=== PATIENT | female | born 1965 | race Caucasian/White ===

== ENCOUNTER 2018-03-23 04:58 | Emergency (ER) | payer MEDICAID ==
--- NOTE | 2018-03-23 07:59 | RAD ---
2 VIEWS CHEST: Date: 03/23/18 PROVIDED CLINICAL HISTORY: Cough. FINDINGS: No comparisons. Cardiac silhouette is upper limits of normal in size. Lungs appear clear. No pleural fluid or pneumot horax apparent. IMPRESSION: No evidence for an acute cardiopulmonary process. POS: [facility]
== END 2018-03-23 06:30 | disposition home or self-care (01) ==
LOC: ERS 04:58
DX: J20.9 Acute bronchitis, unspecified (principal); J44.9 Chronic obstructive pulmonary disease, unspecified; I10 Essential (primary) hypertension; E78.5 Hyperlipidemia, unspecified; F41.9 Anxiety disorder, unspecified; F17.210 Nicotine dependence, cigarettes, uncomplicated; Z79.899 Other long term (current) drug therapy
CPT/HCPCS: 71046

== ENCOUNTER 2018-05-17 03:10 | Emergency (ER) | payer MEDICAID ==
[2018-05-17] MEDS ORDERED: rOPINIRole HCl 2 MG TAB PO SCH (04:15)
== END 2018-05-17 04:11 | disposition home or self-care (01) ==
LOC: ERS 03:10
DX: G25.81 Restless legs syndrome (principal); I10 Essential (primary) hypertension; J44.9 Chronic obstructive pulmonary disease, unspecified; E78.5 Hyperlipidemia, unspecified; F41.9 Anxiety disorder, unspecified; F17.210 Nicotine dependence, cigarettes, uncomplicated; Z79.899 Other long term (current) drug therapy
CPT/HCPCS: 99281

== ENCOUNTER 2018-07-14 16:06 | Outpatient (CLI) | payer MEDICAID ==
--- NOTE | 2018-07-14 16:40 | RAD ---
CHEST TWO VIEWS: History: COPD. Bronchitis. Comparison: 03-23-18 FINDINGS: Normal cardiac silhouette. Lungs are pleural spaces are clear. No pneumothorax or osseous abnormaliti es. IMPRESSION: No acute cardiopulmonary process. POS: [facility]
== END 2018-07-14 16:07 | disposition home or self-care (01) ==
LOC: BICRAD 16:06
PROVIDERS: ATTEND Family Medicine
DX: J44.0 Chronic obstructive pulmonary disease with (acute) lower respiratory infection (principal); J20.9 Acute bronchitis, unspecified
CPT/HCPCS: 71046

== ENCOUNTER 2018-08-09 14:57 | Emergency (ER) | payer OTHER ==
[2018-08-09] MEDS ORDERED: Acetaminophen 325 MG TAB ONE (15:52)
[2018-08-09] MEDS ORDERED: Metoclopramide HCl 10 MG/2 ML VIAL ONE (15:52)
[2018-08-09] MEDS ORDERED: diphenhydrAMINE 50 MG/ML VIAL ONE (15:52)
[2018-08-09] MEDS ORDERED: Cyclobenzaprine 10 MG TAB ONE (16:04)
--- NOTE | 2018-08-09 16:09 | CT ---
HEAD CT NONCONTRAST: 08/09/18 INDICATION: Emergency exam, occipital headache. FINDINGS: The ventricular system is normal in size. There is a sarahi cisterna magna. No intracranial hemorrhage, mass effect or midline shift. IMPRESSION: No acute intracranial abnormality. Should symptoms of headache persist, consider MRI of brain for further evaluation. POS: [facility]
== END 2018-08-09 16:22 | disposition home or self-care (01) ==
LOC: ERS 14:57
DX: G44.209 Tension-type headache, unspecified, not intractable (principal); R73.03 Prediabetes; E78.5 Hyperlipidemia, unspecified; I10 Essential (primary) hypertension; J44.9 Chronic obstructive pulmonary disease, unspecified; F41.9 Anxiety disorder, unspecified; F17.210 Nicotine dependence, cigarettes, uncomplicated; Z79.51 Long term (current) use of inhaled steroids; Z79.899 Other long term (current) drug therapy
CPT/HCPCS: 70450; J1200; J2765

== ENCOUNTER 2018-08-19 13:15 | Outpatient (CLI) | payer OTHER ==
--- NOTE | 2018-08-19 14:26 | MMO ---
BILATERAL SCREENING MAMMOGRAM: Date: 08/19/18 HISTORY: 53-year-old female. Routine screening mammography. COMPARISON: None. Baseline mammogram. TECHNIQUE: CC and MLO views of both breasts are submitted for interpretation. This patient's mammogram was reviewed with the assistance of computer-aided detection. FINDINGS: The breasts are composed of scattered fibroglandular tissue. Focal asymmetry in the upper outer left breast. Benign-appearing calcifications both breasts. IMPRESSION: BIRADS 0: Incomplete: Need Additional Imaging Evaluation and/or Prior Mammograms for Comparison RECOMMENDATION: Spot view of the right breast in the CC and MLO projection, along with a mediolateral view. Spot view s of the left breast in the CC and MLO projection, along with a mediolateral view. Ultrasound should be performed if clinically warranted. The facility will notify patient of need for additional imaging services. POS: [facility]
== END 2018-08-19 13:16 | disposition home or self-care (01) ==
LOC: SCSMAMMO 13:15
PROVIDERS: ATTEND Family Medicine
DX: Z12.31 Encounter for screening mammogram for malignant neoplasm of breast (principal)
CPT/HCPCS: 77067

== ENCOUNTER 2018-09-08 09:32 | Outpatient (CLI) | payer OTHER ==
--- NOTE | 2018-09-08 11:31 | ULT ---
LIMITED LEFT BREAST ULTRASOUND: DATE: 09/08/18 PROVIDED CLINICAL HISTORY: Abnormal mammogram. FINDINGS: Limited sonographic interrogation was performed of the left breast in the region of mammographic conc selvin. There is no evidence for a focal mass. IMPRESSION: BIRADS Category 1 - Negative. Return to annual screening mammography recommenced. POS: [facility]
--- NOTE | 2018-09-08 11:39 | ULT ---
LIMITED RIGHT BREAST ULTRASOUND: DATE: 08/29/2018. PROVIDED CLINICAL HISTORY: Abnormal mammogram. FINDINGS: Limited sonographic interrogation was performed with the right breast in the region of mammographic c oncern. The sonographic appearance of the right breast in this region demonstrates no evidence for f ocal mass. IMPRESSION: BIRADS category 1 - negative. Return to annual screening mammography recommended. POS: [facility]
--- NOTE | 2018-09-08 18:22 | MMO ---
MAMMO Bilat Diag [facility]. CLINICAL HISTORY: Patient is 53 years old and is seen for diagnostic exam. The patient has no family history of breast cancer. The patient has no personal history of cancer. VIEWS: The views performed were: bilateral craniocaudal with tomosynthesis; bilateral mediolateral oblique with tomosynthesis; and bilateral mediolateral with tomosynthesis. FILMS COMPARED: The present examination has been compared to prior imaging studies performed at [facility] on 08/19/2018 and 09/08/2018. MAMMOGRAM FINDINGS: The breasts are heterogeneously dense, which could obscure a lesion on mammography. The asymmetries seen at screening mammography do not demonstrate mass like features mammographically and are similar bilaterally. Sonography in these regions is normal. IMPRESSION: FINDINGS IN BOTH BREASTS ARE BENIGN. A ROUTINE FOLLOW-UP MAMMOGRAM IN 1 YEAR IS RECOMMENDED. THE RESULTS OF THIS EXAM WERE SENT TO THE PATIENT. ACR BI-RADS Category 2 - Benign finding MAMMOGRAPHY NOTE: 1. A negative mammogram report should not delay a biopsy if a dominant of clinically suspicious mass is present. 2. Approximately 10% to 15% of breast cancers are not detected by mammography. 3. Adenosis and dense breasts may obscure an underlying neoplasm.
== END 2018-09-08 09:33 | disposition home or self-care (01) ==
LOC: BICMAMMO 09:32
PROVIDERS: ATTEND Family Medicine
DX: R92.8 Other abnormal and inconclusive findings on diagnostic imaging of breast (principal)
CPT/HCPCS: 77066; G0279

== ENCOUNTER 2018-11-23 16:12 | Emergency (ER) | payer OTHER ==
[2018-11-23] MEDS ORDERED: Ketorolac Tromethamine 30 MG/ML VIAL ONE ×2 (17:04)
== END 2018-11-23 17:33 | disposition home or self-care (01) ==
LOC: ERS 16:12
DX: M79.661 Pain in right lower leg (principal); M79.662 Pain in left lower leg; E78.5 Hyperlipidemia, unspecified; I10 Essential (primary) hypertension; F41.9 Anxiety disorder, unspecified; F17.210 Nicotine dependence, cigarettes, uncomplicated; Z79.899 Other long term (current) drug therapy; Z79.82 Long term (current) use of aspirin; Z79.84 Long term (current) use of oral hypoglycemic drugs; J44.9 Chronic obstructive pulmonary disease, unspecified; Z79.51 Long term (current) use of inhaled steroids
CPT/HCPCS: 96372; J1885

== ENCOUNTER 2018-12-04 08:07 | Observation (INO) | payer OTHER ==
--- NOTE | 2018-12-04 08:34 | RAD ---
EXAM: Chest PA and lateral: HISTORY: Chest pain COMPARISON: 07/14/2018 FINDINGS: Heart size:Within normal limits. Lungs:Clear of acute process. No confluent pneumonia, overt edema, pleural effusion, or other acute process. IMPRESSION: No significant acute intrathoracic disease.
[2018-12-04 08:38] LABS: #Basophils 0.1 thou/uL (0.0-0.2); #Eosinphils 0.1 thou/uL (0.0-0.7); #Lymphocytes 2.9 thou/uL (1.20-3.40); #Monocytes 0.5 thou/uL (0.11-0.59); %Basophils 0.8 % (0.0-1.0); %Eosinophils 1.1 % (0.0-10.0); %Lymphocytes 34.4 % (21.0-51.0); %Monocytes 5.7 % (0.0-10.0); Hemoglobin 14.6 g/dL (12.0-16.0); Mean Corpuscular Hemoglobin 30.8 pg (27.0-31.0); Mean Corpuscular Volume 90.7 fL (78.0-98.0); Mean Platelet Volume 6.7 fL (7.4-10.4); Platelet Count 298 thou/uL (130-400); RBC Distribution Width 13.6 % (11.5-14.5); Red Blood Cell (RBC) Count 4.75 mill/uL (4.20-5.40); White Blood Cell (WBC) Count 8.5 thou/uL (4.8-10.8)
[2018-12-04 09:02] LABS: ALT (SGPT) 20 U/L (8-55); AST (SGOT) 15 U/L (5-34); Albumin 4.6 g/dL (3.5-5.0); Alkaline Phosphatase 111 U/L (40-150); Anion Gap 20 mmol/L (10-20); BUN (Urea Nitrogen) 25 mg/dL (9.8-20.1); Bilirubin, Total 0.4 mg/dL (0.2-1.2); CK (CPK) 182 U/L (29-168); Calc. Creatinine Clearance 0 mL/min (70-130); Calcium 9.8 mg/dL (7.8-10.44); Carbon Dioxide 22 mmol/L (22-29); Chloride 100 mmol/L (98-107); Estimated GFR-MDRD 71; Globulin 2.8 g/dL (2.4-3.5); Glucose 111 mg/dL (70-105); Potassium 3.4 mmol/L (3.5-5.1); Protein, Total 7.4 g/dL (6.0-8.3); Sodium 139 mmol/L (136-145)
[2018-12-04] MEDS ORDERED: Aspirin Chewable 81 MG TAB ONE (09:44)
[2018-12-04] MEDS ORDERED: Nitroglycerin 2% Ointment 1 INCH/1 GM Packet ONE (09:44)
[2018-12-04] MEDS ORDERED: Acetaminophen 325 MG TAB PO PRN (11:38)
[2018-12-04 11:50] VITALS: BMI 37.5
[2018-12-04 12:10] LABS: Troponin I Less than 0.010 ng/mL (< 0.028)
[2018-12-04] MEDS ORDERED: Nitroglycerin 0.4 MG TAB (25 Tab Bottle) PO PRN (12:36)
[2018-12-04 14:39] LABS: Troponin I Less than 0.010 ng/mL (< 0.028)
[2018-12-04] MEDS ORDERED: rOPINIRole HCl 2 MG TAB PO SCH (15:00)
[2018-12-04 17:02] VITALS: BP 130/67; TEMP 98
--- NOTE | 2018-12-04 17:39 | NM ---
NUCLEAR MEDICINE CARDIAC MYOCARDIAL PERFUSION SPECT EJECTION FRACTION STUDY WALL MOTION CINE: DATE: 12/04/2018 History: 53-year-old female smoker with diabetes mellitus, dyslipidemia, and hypertension, presents with chest pain. TECHNIQUE: Number of days:1 Rest study: Technetium 99m-sestamibi (Cardiolite) dose:9.0 mCi Pharmacologic stress: Lexiscan dose:0.4 mg Stress study: Technetium 99m-sestamibi (Cardiolite) dose:28.0 mCi FINDINGS: Cardiac (myocardial perfusion) SPECT There are no reversible myocardial perfusion defects. Ejection fraction study Left ventricular EF = 62% Wall motion cine Normal IMPRESSION: No evidence of reversible ischemia.
[2018-12-04] MEDS ORDERED: Fluticasone Propionate HFA 44 MCG AER INH PRN (18:30)
[2018-12-04] MEDS ORDERED: Regadenoson 0.4 MG/5 ML SYRINGE ONE (20:08)
[2018-12-04] MEDS ORDERED: Fluticasone Propionate HFA 110 MCG AER INH SCH (21:00)
[2018-12-04] MEDS ORDERED: Aspirin 81 mg Enteric Coated Tablet PO SCH (21:00)
[2018-12-04] MEDS ORDERED: Gabapentin 300 MG CAP PO SCH (21:00)
[2018-12-04] MEDS ORDERED: Loratadine 10 MG TAB PO SCH (21:00)
[2018-12-04] MEDS ORDERED: Atorvastatin Calcium 20 MG TAB PO SCH (21:00)
--- NOTE | 2018-12-05 00:35 | SS ---
DATE OF ADMISSION: 12/04/2018 DATE OF DISCHARGE: 12/04/2018 CHIEF COMPLAINT: Chest pain. FINAL DIAGNOSES: 1. Chest pain, resolved, acute coronary syndrome ruled out, MPI negative for reversible ischemia. 2. Hypertension. 3. Type 2 diabetes mellitus. 4. Tobacco abuse with a 40 pack-year history along with current one pack per day habit. 5. Hyperlipidemia. 6. Family history of coronary artery disease. BRIEF HOSPITAL COURSE: The patient is a pleasant 53-year-old female with past medical history significant for multiple coronary artery disease risk factors including hypertension, hyperlipidemia, diabetes, smoking, and family history of coronary artery disease, who presented to the hospital with complaints of chest pain. She states she has had one episode of nonexertional chest pain last week and then this morning, she had some chest pain that she felt as tightening that occurred around 3:30 in the morning. She had some mild shortness of breath and felt clammy. She denies any vomiting, however, felt mildly nauseous. She did go out and smoke two cigarettes before having her boyfriend drive her to the ER for further workup and treatment. On arrival, her EKG was negative for acute ST or T-wave changes. She was admitted for ACS rule out. Her enzymes were indeed negative. Given her multiple risk factors for coronary artery disease as outlined above, the patient was administered a nuclear stress test. Her stress test was normal, showing no evidence of reversible ischemia and normal EF. The patient feels well by this afternoon. She denies any further chest pain. ACS as mentioned above has been ruled out in this patient. She has no complaints at the time of my discharge. PAST MEDICAL/SURGICAL HISTORY: Includes hypertension, type 2 diabetes mellitus, hyperlipidemia, COPD, neuropathy, restless legs syndrome, tympanic membrane repair as both a child and adult, Arnold's neuroma removal from foot, cholecystectomy, tubal ligation. SOCIAL HISTORY: She denies any alcohol or illicit drug use. She is disabled secondary to back pain and does not work. She lives with her boyfriend. She has smoked two packs per day of cigarettes since she was 21, but recently cut down to one pack per day. ALLERGIES: HYDROCODONE, PENICILLIN, AND SULFA. MEDICATIONS: Current medications which will not change on discharge include: 1. Albuterol inhaler as needed. 2. Potassium chloride 20 mEq one daily. 3. Aspirin 81 mg daily. 4. Lipitor 20 mg p.o. at bedtime. 5. Cetirizine 10 mg p.o. at bedtime. 6. Fluticasone 50 mcg inhaled b.i.d. p.r.n. 7. Gabapentin 300 mg p.o. b.i.d. 8. Hydrochlorothiazide 25 mg daily. 9. Metformin 850 mg p.o. b.i.d. 10. Montelukast 10 mg p.o. daily. 11. Ropinirole 2 mg p.o. t.i.d. 12. Terazosin 5 mg p.o. daily. PHYSICAL EXAMINATION: VITAL SIGNS: Blood pressure 134/60, O2 saturation is 93% on room air, respirations 20, pulse 90, temperature 98.2. GENERAL: This is an obese female, in no acute distress. HEENT: Head is atraumatic and normocephalic. Mucous membranes are moist. NECK: No lymphadenopathy. No carotid bruits. Trachea is midline. CV: S1 and S2. Regular rate and rhythm. No appreciable murmurs, rubs, or gallops. LUNGS: Regular respiratory rate and pattern with occasional expiratory rhonchi. ABDOMEN: Positive bowel sounds. Soft, nontender. No masses. EXTREMITIES: No edema. +2 DP pulses bilaterally. SKIN: Warm and dry. NEUROLOGIC: Cranial nerves 2 through 12 are intact. The patient is nonfocal. DISCHARGE DISPOSITION: Home. DISCHARGE CONDITION: Stable. FOLLOWUP AND DISCHARGE INSTRUCTIONS: The patient is to continue aggressive risk factor modification, including aggressive blood glucose control, as well as tobacco cessation, which I have counseled the patient heavily on. She has a followup scheduled with her primary care physician, Dr. Schreiber next week on 12/08, for further blood work to include fasting lipid panel. She will be discharged home in good condition today. Job ID: [id number]
[2018-12-05] MEDS ORDERED: Terazosin HCl 5 MG CAP PO SCH (09:00)
[2018-12-05] MEDS ORDERED: Hydrochlorothiazide 25 MG TAB PO SCH (09:00)
== END 2018-12-04 18:11 | disposition home or self-care (01) ==
LOC: ERS 08:07 → 2SW 09:40
PROVIDERS: ADMIT Internal Medicine; ATTEND Internal Medicine
DX: R07.89 Other chest pain (principal); I10 Essential (primary) hypertension; E11.9 Type 2 diabetes mellitus without complications; E78.5 Hyperlipidemia, unspecified; F17.210 Nicotine dependence, cigarettes, uncomplicated; I25.10 Atherosclerotic heart disease of native coronary artery without angina pectoris; J44.9 Chronic obstructive pulmonary disease, unspecified; E66.9 Obesity, unspecified; Z88.0 Allergy status to penicillin; Z88.2 Allergy status to sulfonamides; Z88.6 Allergy status to analgesic agent; Z79.82 Long term (current) use of aspirin; Z79.51 Long term (current) use of inhaled steroids; Z79.84 Long term (current) use of oral hypoglycemic drugs; Z79.899 Other long term (current) drug therapy; Z68.37 Body mass index [BMI] 37.0-37.9, adult
CPT/HCPCS: 36415; 71046; 78452; 80053; 82550; 83690; 83880; 84484; 85025; 90471; 90732; 93005; 93017; 96360; A9500; G0009; G0378; J2785

== ENCOUNTER 2019-02-21 00:36 | Observation (INO) | payer OTHER ==
[2019-02-21 00:58] LABS: #Basophils 0.1 thou/uL (0.0-0.2); #Eosinphils 0.1 thou/uL (0.0-0.7); #Lymphocytes 3.9 thou/uL (1.20-3.40); #Monocytes 0.6 thou/uL (0.11-0.59); #Neutrophils 5.1 thou/uL (1.40-6.50); %Basophils 0.7 % (0.0-1.0); %Eosinophils 1.5 % (0.0-10.0); %Lymphocytes 39.4 % (21.0-51.0); %Monocytes 6.2 % (0.0-10.0); %Neutrophils 52.2 % (42.0-75.0); Hemoglobin 14.6 g/dL (12.0-16.0); Mean Corpuscular HGB CONC 35.1 g/dL (32.0-36.0); Mean Corpuscular Hemoglobin 31.7 pg (27.0-31.0); Mean Corpuscular Volume 90.4 fL (78.0-98.0); Mean Platelet Volume 6.3 fL (7.4-10.4); Platelet Count 323 thou/uL (130-400); RBC Distribution Width 14.3 % (11.5-14.5); White Blood Cell (WBC) Count 9.8 thou/uL (4.8-10.8)
[2019-02-21] MEDS ORDERED: Nitroglycerin 0.4 MG TAB 1 EACH ONE (01:13)
[2019-02-21] MEDS ORDERED: Aspirin Chewable 81 MG TAB ONE (01:13)
[2019-02-21 01:20] LABS: ALT (SGPT) 33 U/L (8-55); AST (SGOT) 20 U/L (5-34); Albumin 4.5 g/dL (3.5-5.0); Alkaline Phosphatase 118 U/L (40-150); Anion Gap 15 mmol/L (10-20); BUN (Urea Nitrogen) 13 mg/dL (9.8-20.1); Bilirubin, Total 0.5 mg/dL (0.2-1.2); Calc. Creatinine Clearance 0 mL/min (70-130); Calcium 10.1 mg/dL (7.8-10.44); Carbon Dioxide 28 mmol/L (22-29); Chloride 97 mmol/L (98-107); Estimated GFR-MDRD 69; Globulin 2.8 g/dL (2.4-3.5); Glucose 128 mg/dL (70-105); Potassium 3.6 mmol/L (3.5-5.1); Protein, Total 7.3 g/dL (6.0-8.3); Sodium 136 mmol/L (136-145)
[2019-02-21] MEDS ORDERED: Mag-Al 1200 mg/1200 mg/30 ML UDCUP ONE (01:52)
[2019-02-21] MEDS ORDERED: Lidocaine Viscous Sol 2% 15 ml UD Cup ONE (01:52)
[2019-02-21 04:16] LABS: Troponin I Less than 0.010 ng/mL (< 0.028)
[2019-02-21] MEDS ORDERED: Acetaminophen 325 MG TAB PO PRN ×2 (04:50→08:21)
[2019-02-21 05:07] VITALS: BMI 33.4
[2019-02-21 07:13] LABS: Cardiac Risk 4.3 (Less than 4.5)
[2019-02-21 07:16] LABS: Troponin I Less than 0.010 ng/mL (< 0.028)
--- NOTE | 2019-02-21 07:45 | RAD ---
EXAM: CHEST ONE VIEW HISTORY: Intermittent chest pain COMPARISON: 12/04/2018 FINDINGS: The cardiac silhouette and pulmonary vasculature is within normal limits. Linear densities are seen a t the lung base probably related to vascular structures and possibly mild atelectasis. Lungs are otherwise clear. The osseous structures are intact. IMPRESSION: No acute cardiopulmonary process.
[2019-02-21] MEDS ORDERED: Ondansetron PF 4 MG/2 ML Vial IVP PRN (08:21)
[2019-02-21] MEDS ORDERED: Ondansetron ODT 4 MG TAB PO PRN (08:21)
[2019-02-21] MEDS ORDERED: Acetaminophen 650 MG Suppository PR PRN (08:21)
[2019-02-21] MEDS ORDERED: Cyclobenzaprine 10 MG TAB PO PRN (08:42)
[2019-02-21] MEDS ORDERED: HumaLOG 300 UNITS/3 ML VIAL SC PRN ×2 (08:44)
[2019-02-21] MEDS ORDERED: Dextrose 5% in Water 1,000 ML IV PRN (08:44)
[2019-02-21] MEDS ORDERED: Dextrose 50% Abboject 50 ML SYRINGE SLOW IVP PRN (08:44)
[2019-02-21] MEDS ORDERED: Famotidine/PF 20 mg/2ml Vial SLOW IVP SCH (09:00)
[2019-02-21] MEDS ORDERED: Gabapentin 300 MG CAP PO SCH (09:00)
[2019-02-21] MEDS ORDERED: Hydrochlorothiazide 25 MG TAB PO SCH (09:00)
[2019-02-21] MEDS ORDERED: Aspirin 325 mg Enteric Coated Tablet PO SCH (09:00)
[2019-02-21] MEDS ORDERED: Terazosin HCl 5 MG CAP PO SCH (09:00)
[2019-02-21] MEDS ORDERED: Montelukast Sodium 10 mg Tablet PO SCH (09:00)
[2019-02-21] MEDS: Loratadine 10 MG TAB PO SCH ×2 (10:41→10:46)
[2019-02-21] MEDS: rOPINIRole HCl 2 MG TAB PO SCH ×2 (10:41→15:10)
[2019-02-21 11:01] VITALS: BP 131/73; TEMP 97.4
[2019-02-21] MEDS ORDERED: Mometasone 100 MCG HFA INHALER INH SCH (18:30)
[2019-02-21] MEDS ORDERED: Mometasone Furoate 120 PUFF 220 MCG INH SCH (18:30)
[2019-02-21] MEDS ORDERED: Aspirin 81 mg Enteric Coated Tablet PO SCH (21:00)
[2019-02-21] MEDS ORDERED: Atorvastatin Calcium 20 MG TAB PO SCH (21:00)
--- NOTE | 2019-02-22 07:40 | ULT ---
EXAM: US Gallbladder RUQ CLINICAL HISTORY: Epigastric pain. COMPARISON: None. FINDINGS: Pancreas: Suboptimal evaluation of the pancreas due to bowel gas Liver:Increased echogenicity may be due to hepatic steatosis or hepatocellular disease. Subsequent ev aluation for hepatic masses and intrahepatic biliary dilatation is limited. Right hepatic lobe measures 19 cm Portal vein: Patent with appropriate directional flow Gallbladder: Surgically absent Greene's sign:Not applicable Bile ducts: Poorly defined due to bowel gas Right kidney: No hydronephrosis. Right kidney measures 3.9 x 10.7 x 5.8 cm in length. IMPRESSION: 1. Increased echogenicity of liver may be due to hepatic steatosis or hepatocellular disease. There i s concern for hepatic masses, consider liver mass protocol CT or abdomen MRI 2. Suboptimal evaluation the common bile duct. Surgically absent gallbladder
== END 2019-02-21 17:53 | disposition home or self-care (01) ==
LOC: ERS 00:36 → 2NO 04:17
PROVIDERS: ADMIT Internal Medicine; ATTEND Internal Medicine
DX: R07.9 Chest pain, unspecified (principal); E78.00 Pure hypercholesterolemia, unspecified; E78.5 Hyperlipidemia, unspecified; F41.9 Anxiety disorder, unspecified; F17.210 Nicotine dependence, cigarettes, uncomplicated; J44.9 Chronic obstructive pulmonary disease, unspecified; E11.40 Type 2 diabetes mellitus with diabetic neuropathy, unspecified; Z79.82 Long term (current) use of aspirin; Z79.84 Long term (current) use of oral hypoglycemic drugs; Z79.899 Other long term (current) drug therapy; Z88.0 Allergy status to penicillin; Z88.2 Allergy status to sulfonamides; Z88.5 Allergy status to narcotic agent
CPT/HCPCS: 36415; 36416; 71045; 76705; 80053; 80061; 83690; 83880; 84484; 85025; 93005; 94760; 96374; 99406; G0378; S0028

== ENCOUNTER 2019-03-29 00:45 | Observation (INO) | payer OTHER ==
[2019-03-29 01:20] LABS: #Lymphocytes 1.8 thou/uL (1.20-3.40); #Monocytes 0.8 thou/uL (0.11-0.59); #Neutrophils 5.7 thou/uL (1.40-6.50); %Eosinophils 0.4 % (0.0-10.0); %Lymphocytes 21.2 % (21.0-51.0); %Monocytes 9.9 % (0.0-10.0); %Neutrophils 68.5 % (42.0-75.0); Hemoglobin 13.8 g/dL (12.0-16.0); Mean Corpuscular HGB CONC 35.6 g/dL (32.0-36.0); Mean Corpuscular Hemoglobin 31.9 pg (27.0-31.0); Mean Corpuscular Volume 89.5 fL (78.0-98.0); Mean Platelet Volume 6.5 fL (7.4-10.4); Platelet Count 234 thou/uL (130-400); RBC Distribution Width 14.1 % (11.5-14.5); Red Blood Cell (RBC) Count 4.33 mill/uL (4.20-5.40); White Blood Cell (WBC) Count 8.4 thou/uL (4.8-10.8)
[2019-03-29 01:37] LABS: ALT (SGPT) 18 U/L (8-55); AST (SGOT) 16 U/L (5-34); Albumin 4.1 g/dL (3.5-5.0); Alkaline Phosphatase 100 U/L (40-110); Anion Gap 16 mmol/L (10-20); BUN (Urea Nitrogen) 10 mg/dL (9.8-20.1); Bilirubin, Total 0.8 mg/dL (0.2-1.2); Calc. Creatinine Clearance 0 mL/min (70-130); Calcium 8.9 mg/dL (7.8-10.44); Carbon Dioxide 24 mmol/L (22-29); Chloride 97 mmol/L (98-107); Estimated GFR-MDRD 83; Glucose 146 mg/dL (70-105); Lipase 5 U/L (8-78); Potassium 3.3 mmol/L (3.5-5.1); Protein, Total 7.1 g/dL (6.0-8.3); Sodium 134 mmol/L (136-145)
[2019-03-29 02:25] LABS: Bilirubin Negative (Negative); Blood, Urine Negative (Negative); Clarity Clear (Clear); Glucose, Urine (Dipstick) Normal (Negative); Leukocyte Negative Leu/uL (Negative); Nitrite Negative (Negative); Protein, Urine (Dipstick) Negative (Neg-Trace); Urobilinogen Normal mg/dL (Less than 2)
[2019-03-29 02:26] LABS: Pregnancy Test - Urine (BHCG) Negative (Negative); Pregu Control Background? CLEAR/WHITE (CLR/WHITE); Pregu Control Bar Appear? YES (CONTROL BAR); Specific Gravity Greater than 1.060 (1.002-1.036)
[2019-03-29] MEDS ORDERED: Potassium Chloride 20 MEQ TAB ONE (03:34)
[2019-03-29] MEDS ORDERED: Ketorolac Tromethamine 30 MG/ML VIAL ONE (03:34)
[2019-03-29] MEDS ORDERED: Ondansetron PF 4 MG/2 ML Vial ONE (03:34)
[2019-03-29] MEDS ORDERED: Ondansetron PF 4 MG/2 ML Vial IVP PRN (06:16)
[2019-03-29] MEDS ORDERED: Acetaminophen 325 MG TAB PO PRN (06:17)
[2019-03-29] MEDS ORDERED: Ondansetron ODT 4 MG TAB PO PRN (06:17)
[2019-03-29] MEDS ORDERED: Sodium Chloride 0.9% 1,000 ML IV SCH (06:30)
[2019-03-29 06:37] VITALS: BMI 36.3
--- NOTE | 2019-03-29 07:58 | CT ---
PRELIMINARY REPORT/[facility]/EMERGENCY AFTER HOURS PROCEDURE: PROCEDURE INFORMATION: Exam: CT Abdomen and pelvis with contrast Exam date and time: 03/29/2019 1:24 AM Clinical history: 53 years old, female; Abdominal pain; Patient HX: 53 y/o F presents to ED C/O x 3 d ays of n/v, diarrhea that began last night. PT reports associated lower abd cramping. Per EMS, vs inc lude PT tachy en route TECHNIQUE: Imaging protocol: Computed tomography of the abdomen and pelvis with intravenous contrast. COMPARISON: No relevant prior studies available. FINDINGS: Lungs: No consolidations in the lung bases. Liver: No liver masses. Gallbladder and bile ducts: Surgical changes of cholecystectomy. No ductal dilation. Pancreas: No pancreatic mass or ductal dilation. Spleen: No splenic masses. Adrenals: No adrenal nodules. Kidneys and ureters: No enhancing mass or hydronephrosis. Trace bilateral perinephric fat stranding. Stomach and bowel: No evidence of obstruction or bowel wall thickening. Nonspecific 8 x 4 mm radiopaque density in the ascending colon, possibly a GI clip. There are few colonic diverticula with out evidence of acute diverticulitis. Appendix: Normal appendix. Intraperitoneal space: No free air or free fluid. Vasculature: Atherosclerosis of the aorta without aneurysm. Lymph nodes: No lymphadenopathy. Bladder: Normal bladder. Reproductive: Normal appearance of the uterus and adnexa. Bones/joints: No suspicious bone lesions. Soft tissues: No acute findings. IMPRESSION: 1. No acute findings in the abdomen or pelvis. 2. No evidence of bowel obstruction or appendicitis. Thank you for allowing us to participate in the care of your patient. Dictated and Authenticated by: Erica Zaldivar MD 03/29/2019 2:16 AM Central Time ([place] & [place]) FINAL REPORT EMERGENCY AFTER HOURS ABDOMEN AND PELVIC CT SCAN WITH IV CONTRAST: Date: 03/29/19 Time: 0126 hours IMPRESSION: Marked fatty changes in the liver. No renal calculus or obstruction. No convincing CT evidence for acute appendicitis. Report in agreement with preliminary report given on-call by Sudhakar. POS: [facility]
[2019-03-29] MEDS ORDERED: Cyclobenzaprine 10 MG TAB PO PRN (08:45)
[2019-03-29] MEDS ORDERED: PROVENTIL INHALER 6.7 G (200 INHALATIONS) INH PRN (08:45)
[2019-03-29] MEDS ORDERED: Terazosin HCl 5 MG CAP PO SCH (09:00)
[2019-03-29] MEDS ORDERED: Montelukast Sodium 10 mg Tablet PO SCH (09:00)
[2019-03-29] MEDS ORDERED: Hydrochlorothiazide 25 MG TAB PO SCH (09:00)
[2019-03-29] MEDS ORDERED: Fluticasone Propionate HFA 110 MCG AER INH SCH ×2 (09:00)
[2019-03-29] MEDS ORDERED: Gabapentin 300 MG CAP PO SCH (09:00)
[2019-03-29] MEDS: rOPINIRole HCl 2 MG TAB PO SCH ×2 (09:40→15:43)
[2019-03-29 15:42] VITALS: BP 164/82; TEMP 98.6
[2019-03-29] MEDS ORDERED: Mometasone 200 MCG HFA INHALER INH SCH (18:30)
[2019-03-29] MEDS ORDERED: ISOVUE-370 76%-LOCM 1 ML ONE (20:28)
--- NOTE | 2019-03-29 20:53 | SS ---
DATE OF ADMISSION: 03/29/2019 DATE OF DISCHARGE: 03/29/2019 PRIMARY CARE PROVIDER: Dr. Schreiber. CHIEF COMPLAINT: Abdominal pain with nausea, vomiting, and diarrhea. HISTORY OF PRESENT ILLNESS: This is a 53-year-old female, who presented to [facility] Emergency Department complaining of 2-3 day history of abdominal cramping with associated nausea, vomiting, and diarrhea. The patient denies any travel history, family members with similar symptoms, change to her chronic medication regimen, or recent exposures. The patient states the symptoms began somewhat abruptly with cramping in the lower abdominal region. The patient had emesis up to 5 times per day without blood. The patient denied any blood in her stool and denied any recent change to her chronic medication regimen. The patient became concerned with the quantity of diarrhea and presented to the emergency room for evaluation. The patient denied any documented fever, cough, congestion, or chest pain. In the emergency room, the patient underwent general evaluation including screening metabolic survey showing mild hyponatremia and hypokalemia, receiving potassium supplementation in addition to IV fluids and antiemetics. CT imaging of the abdomen and pelvis was performed showing a fatty liver, however, no specific acute process was identified. The patient was transferred to the observation unit for evaluation. PAST MEDICAL HISTORY: 1. Diabetes mellitus type 2. 2. Tobacco abuse. 3. Hyperlipidemia. 4. Hypertension. 5. Chronic obstructive pulmonary disease. 6. Peripheral neuropathy secondary to diabetes mellitus. 7. Anxiety disorder. PAST SURGICAL HISTORY: 1. Status post left foot surgery. 2. Status post cholecystectomy. 3. Status post section. 4. Status post ear surgery as a child. CURRENT MEDICATIONS: 1. Albuterol sulfate 2 puffs inhaled q.6 hours p.r.n. 2. Enteric-coated aspirin 81 mg p.o. at bedtime. 3. Lipitor 20 mg p.o. at bedtime. 4. Cetirizine 10 mg p.o. at bedtime. 5. Flexeril 10 mg p.o. t.i.d. p.r.n. 6. Flovent HFA 2 puffs inhaled b.i.d. 7. Gabapentin 300 mg p.o. b.i.d. 8. Hydrochlorothiazide 25 mg p.o. daily. 9. Metformin 850 mg p.o. b.i.d. 10. Singulair 10 mg p.o. daily. 11. Klor-Con 10 mEq p.o. b.i.d. 12. Ropinirole 2 mg p.o. t.i.d. 13. Terazosin 5 mg p.o. daily. 14. Protonix 20 mg p.o. daily. ALLERGIES: HYDROCODONE, PENICILLIN, AND SULFA. FAMILY HISTORY: Father of complications of myocardial infarction. SOCIAL HISTORY: The patient resides near in [place], [place]. Smokes up to half a pack of cigarettes daily since the age of 20. No alcohol or illicit drug use. REVIEW OF SYSTEMS: CONSTITUTIONAL: Negative for weight loss or gain, ability to conduct usual activities. SKIN: Negative for rash, itching. EYES: Negative for double vision, pain. ENT/MOUTH: Negative for nose bleeding, neck stiffness, pain, tenderness. CARDIOVASCULAR: Negative for palpitations, dyspnea on exertion, orthopnea. RESPIRATORY: Negative for shortness of breath, wheezing, cough, hemoptysis, fever or night sweats. GASTROINTESTINAL: Negative for poor appetite, abdominal pain, heartburn, nausea, vomiting, constipation, or diarrhea. GENITOURINARY: Negative for urgency, frequency, dysuria, nocturia. MUSCULOSKELETAL: Negative for pain, swelling. NEUROLOGIC/PSYCHIATRIC: Negative for anxiety, depression. ALLERGY/IMMUNOLOGIC: Negative for skin rash, bleeding tendency. Otherwise, negative except as stated per HPI. PHYSICAL EXAMINATION: VITAL SIGNS: Currently, blood pressure 135/65, pulse 98, respiratory rate 16, temperature 99 degrees Fahrenheit, O2 saturation 93% on room air. GENERAL APPEARANCE: This is a 53-year-old female, alert and oriented x3, pleasant, smiling, in no acute distress. HEENT: Pupils are equal, round, reactive to light and accommodation. Extraocular muscles are intact. No scleral icterus. No conjunctival injection. Nares patent. OP is clear. Teeth in poor repair. NECK: Supple. No cervical adenopathy. No thyromegaly. No carotid bruits. No JVD appreciated. Cervical spine with full active and passive range of motion. No meningeal signs noted. CHEST: Diminished breath sounds bilaterally with occasional expiratory wheeze. CARDIOVASCULAR: S1 and S2 without noted murmur, rub, or gallop. ABDOMEN: Obese with mild tenderness to palpation in the suprapubic and right lower quadrant without rebound or guarding. Bowel sounds are positive in all 4 quadrants. No palpable mass. Landmarks are difficult to palpate due to the patient's body habitus. EXTREMITIES: Warm and dry with fair turgor. No clubbing, cyanosis, or asymmetric edema appreciated. Pulses palpable distally at the dorsalis pedis, posterior tibial, and popliteal arteries bilaterally. Capillary refill less than 2 seconds. NEUROLOGICAL: Cranial nerves 2 through 12 are grossly intact. No focal or lateralizing signs appreciated. PERTINENT LABORATORY AND X-RAY FINDINGS: Sodium 134, potassium 3.3, chloride 97, CO2 of 24, BUN 10, creatinine 0.74, glucose 146, lactic acid level 2.0, calcium 8.9. LFTs within normal limits. Lipase 5. CBC showed a white blood cell count 8.4, hemoglobin 14, hematocrit 39, platelet count 234 with normal differential. Urinalysis showed a specific gravity 1.060, otherwise negative. Urine beta-hCG negative on 03/29/2019. CT of the abdomen and pelvis dated 03/29/2019, showed no acute intraabdominal process. Fatty liver noted. ASSESSMENT AND PLAN: 1. Gastroenteritis. Suspect viral etiology given the patient's presentation. Continue IV fluids, transitioning to increased oral intake. No specific underlying etiology identified or an acute process identified by CT imaging. Continue supportive management and antiemetics as needed. 2. Hypokalemia. Continue potassium supplementation with routine followup as an outpatient for serial monitoring. 3. Hyponatremia. Secondary to the HCTZ. Mild, asymptomatic. 4. Diabetes mellitus type 2. Continue home diabetic regimen and monitor clinically. 5. Dehydration. Improved with IV fluid hydration. Continue to encourage free water intake orally. 6. Prophylaxis. SCDs while in bed. 7. Code status, full. Surrogate medical decision maker not identified. DISPOSITION: Discharged home with followup with primary care provider, Dr. Schreiber within 7 days of discharge. CONDITION ON DISCHARGE: Stable. Job ID: [id number]
[2019-03-29] MEDS ORDERED: Aspirin 81 mg Enteric Coated Tablet PO SCH (21:00)
[2019-03-29] MEDS ORDERED: Loratadine 10 MG TAB PO SCH (21:00)
[2019-03-29] MEDS ORDERED: [UNRECOGNIZED DRUG - REMARK] PO SCH (21:00)
== END 2019-03-29 19:27 | disposition home or self-care (01) ==
LOC: ERS 00:45 → 2SW 06:03
PROVIDERS: ADMIT Internal Medicine; ATTEND Internal Medicine
DX: K52.9 Noninfective gastroenteritis and colitis, unspecified (principal); I10 Essential (primary) hypertension; E11.42 Type 2 diabetes mellitus with diabetic polyneuropathy; E87.1 Hypo-osmolality and hyponatremia; E86.0 Dehydration; E87.6 Hypokalemia; E78.5 Hyperlipidemia, unspecified; F41.9 Anxiety disorder, unspecified; F17.210 Nicotine dependence, cigarettes, uncomplicated; J44.9 Chronic obstructive pulmonary disease, unspecified; Z79.82 Long term (current) use of aspirin; Z79.84 Long term (current) use of oral hypoglycemic drugs; Z79.899 Other long term (current) drug therapy; Z88.0 Allergy status to penicillin; Z88.2 Allergy status to sulfonamides; Z88.5 Allergy status to narcotic agent
CPT/HCPCS: 74177; 80053; 81003; 81025; 83605; 83690; 85025; 87040; 96360; 96361; 96374; 96375; G0378; J1885; J2405; Q9966

== ENCOUNTER 2020-02-26 10:53 | Outpatient (CLI) | payer OTHER ==
--- NOTE | 2020-02-26 11:36 | RAD ---
EXAM: Two views chest PROVIDED CLINICAL HISTORY: Disability exam COMPARISON: 12/04/2018 FINDINGS: Cardiac and mediastinal silhouette appears within normal limits. Lungs appear free of significant opa city. No pleural fluid or pneumothorax apparent. IMPRESSION: No evidence for an acute cardiopulmonary process.
--- NOTE | 2020-02-26 11:46 | RAD ---
LUMBAR SPINE 2 VIEWS: HISTORY: Disability examination. FINDINGS: The lumbar vertebrae maintain height and alignment. There is mild loss of disk space at L5-S1. Mini mal degenerative spurring from the lumbar vertebrae. Mild facet hypertrophy. IMPRESSION: There are mild degenerative changes as described. POS: [facility]
== END 2020-02-26 10:54 | disposition home or self-care (01) ==
LOC: BICRAD 10:53
PROVIDERS: ATTEND Family Medicine
DX: Z02.71 Encounter for disability determination (principal); M47.816 Spondylosis without myelopathy or radiculopathy, lumbar region
CPT/HCPCS: 71046; 72100

== ENCOUNTER 2021-06-04 12:08 | Emergency (ER) | payer OTHER ==
[2021-06-04 12:46] LABS: #Eosinphils 0.1 thou/uL (0.0-0.7); #Lymphocytes 1.9 thou/uL (1.20-3.40); #Monocytes 0.7 thou/uL (0.11-0.59); #Neutrophils 10.5 thou/uL (1.40-6.50); %Basophils 0.3 % (0.0-1.0); %Eosinophils 0.8 % (0.0-10.0); %Lymphocytes 14.2 % (21.0-51.0); %Monocytes 5.4 % (0.0-10.0); %Neutrophils 79.3 % (42.0-75.0); Hemoglobin 12.3 g/dL (12.0-16.0); Mean Corpuscular Hemoglobin 33.6 pg (27.0-31.0); Mean Platelet Volume 6.6 fL (7.4-10.4); Platelet Count 252 thou/uL (130-400); RBC Distribution Width 15.1 % (11.5-14.5); Red Blood Cell (RBC) Count 3.65 mill/uL (4.20-5.40); White Blood Cell (WBC) Count 13.3 thou/uL (4.8-10.8)
[2021-06-04] MEDS ORDERED: Morphine 4 MG/ML VIAL ONE (12:51)
[2021-06-04 13:00] LABS: ALT (SGPT) 45 U/L (8-55); AST (SGOT) 19 U/L (5-34); Albumin 4.3 g/dL (3.5-5.0); Alkaline Phosphatase 119 U/L (40-110); Anion Gap 15 mmol/L (10-20); BUN (Urea Nitrogen) 35 mg/dL (9.8-20.1); Bilirubin, Total 0.4 mg/dL (0.2-1.2); Calc. Creatinine Clearance 0 mL/min (70-130); Calcium 9.8 mg/dL (7.8-10.44); Carbon Dioxide 23 mmol/L (22-29); Chloride 104 mmol/L (98-107); Globulin 2.8 g/dL (2.4-3.5); Glucose 169 mg/dL (70-105); Potassium 4.4 mmol/L (3.5-5.1); Protein, Total 7.1 g/dL (6.0-8.3); Sodium 138 mmol/L (136-145)
== END 2021-06-04 14:44 | disposition home or self-care (01) ==
LOC: ERS 12:08
DX: R10.13 Epigastric pain (principal); R10.11 Right upper quadrant pain; I10 Essential (primary) hypertension; E11.40 Type 2 diabetes mellitus with diabetic neuropathy, unspecified; J44.9 Chronic obstructive pulmonary disease, unspecified; E78.5 Hyperlipidemia, unspecified; F17.210 Nicotine dependence, cigarettes, uncomplicated
CPT/HCPCS: 71045; 74177; 80053; 83690; 84484; 85025; 93005; 96374; J2270

== ENCOUNTER 2022-01-10 10:41 | Emergency (ER) | payer OTHER ==
[2022-01-10 11:19] LABS: #Eosinphils 0.1 thou/uL (0.0-0.7); #Lymphocytes 2.5 thou/uL (1.20-3.40); #Monocytes 0.4 thou/uL (0.11-0.59); #Neutrophils 3.6 thou/uL (1.40-6.50); %Basophils 0.2 % (0.0-1.0); %Eosinophils 1.4 % (0.0-10.0); %Lymphocytes 37.7 % (21.0-51.0); %Monocytes 6.4 % (0.0-10.0); %Neutrophils 54.3 % (42.0-75.0); Hemoglobin 10.1 g/dL (12.0-16.0); Mean Corpuscular HGB CONC 32.4 g/dL (32.0-36.0); Mean Corpuscular Hemoglobin 26.9 pg (27.0-31.0); Mean Corpuscular Volume 83.1 fL (78.0-98.0); Platelet Count 304 thou/uL (130-400); RBC Distribution Width 17.4 % (11.5-14.5); Red Blood Cell (RBC) Count 3.76 mill/uL (4.20-5.40); White Blood Cell (WBC) Count 6.6 thou/uL (4.8-10.8)
[2022-01-10 11:40] LABS: ALT (SGPT) 32 U/L (8-55); AST (SGOT) 30 U/L (5-34); Albumin 4.4 g/dL (3.5-5.0); Alkaline Phosphatase 147 U/L (40-110); Anion Gap 17 mmol/L (10-20); BUN (Urea Nitrogen) 24 mg/dL (9.8-20.1); Bilirubin, Total 0.4 mg/dL (0.2-1.2); Calc. Creatinine Clearance 0 mL/min (70-130); Carbon Dioxide 21 mmol/L (22-29); Chloride 105 mmol/L (98-107); Estimated GFR 57; Glucose 110 mg/dL (70-105); Lipase 26 U/L (8-78); Potassium 4.4 mmol/L (3.5-5.1); Protein, Total 7.4 g/dL (6.0-8.3); Sodium 139 mmol/L (136-145)
[2022-01-10] MEDS ORDERED: methylPREDNISolone Sod Succ/PF 125 MG/2 ML VIAL ONE (11:57)
== END 2022-01-10 14:00 | disposition home or self-care (01) ==
LOC: ERS 10:41
DX: J44.1 Chronic obstructive pulmonary disease with (acute) exacerbation (principal); I10 Essential (primary) hypertension; E78.5 Hyperlipidemia, unspecified; E03.9 Hypothyroidism, unspecified; E11.40 Type 2 diabetes mellitus with diabetic neuropathy, unspecified; G47.30 Sleep apnea, unspecified; F17.210 Nicotine dependence, cigarettes, uncomplicated; G25.81 Restless legs syndrome; Z79.84 Long term (current) use of oral hypoglycemic drugs; Z79.899 Other long term (current) drug therapy
CPT/HCPCS: 36415; 71045; 80053; 83690; 84484; 85025; 93005; 94760; 96374; J2930

== ENCOUNTER 2022-06-21 06:33 | Emergency (ER) | payer MEDICAID ==
[2022-06-21] MEDS ORDERED: Diazepam 10 MG/2 ML SYRINGE ONE (06:52)
[2022-06-21] MEDS ORDERED: Orphenadrine Citrate 60 MG/2 ML VIAL ONE (06:53)
[2022-06-21] MEDS ORDERED: predniSONE 20 MG TAB ONE (07:42)
== END 2022-06-21 08:33 | disposition home or self-care (01) ==
LOC: ERS 06:33
DX: M54.50 Low back pain, unspecified (principal); E11.40 Type 2 diabetes mellitus with diabetic neuropathy, unspecified; I10 Essential (primary) hypertension; E78.5 Hyperlipidemia, unspecified; E03.9 Hypothyroidism, unspecified; F17.210 Nicotine dependence, cigarettes, uncomplicated; Z79.899 Other long term (current) drug therapy; Z79.82 Long term (current) use of aspirin; Z79.84 Long term (current) use of oral hypoglycemic drugs
CPT/HCPCS: 96372; 99283; J2360; J3360; J7512

== ENCOUNTER 2023-01-25 09:08 | Observation (INO) | payer OTHER, MEDICAID ==
[2023-01-25 10:01] LABS: #Eosinphils 0.1 thou/uL (0.0-0.7); #Monocytes 0.7 thou/uL (0.11-0.59); #Neutrophils 5.9 thou/uL (1.40-6.50); %Basophils 0.5 % (0.0-1.0); %Eosinophils 1.3 % (0.0-10.0); %Lymphocytes 22.9 % (21.0-51.0); %Monocytes 7.7 % (0.0-10.0); %Neutrophils 67.4 % (42.0-75.0); Hemoglobin 10.1 g/dL (12.0-16.0); Mean Corpuscular HGB CONC 29.3 g/dL (32.0-36.0); Mean Corpuscular Hemoglobin 22.5 pg (27.0-31.0); Platelet Count 331 10x3/uL (130-400); Red Blood Cell (RBC) Count 4.48 mill/uL (4.20-5.40); White Blood Cell (WBC) Count 8.7 10x3/uL (4.8-10.8)
[2023-01-25 10:34] LABS: ALT (SGPT) 16 U/L (8-55); AST (SGOT) 14 U/L (5-34); Albumin 4.4 g/dL (3.5-5.0); Alkaline Phosphatase 106 U/L (40-110); Anion Gap 15 mmol/L (10-20); BUN (Urea Nitrogen) 30 mg/dL (9.8-20.1); Bilirubin, Total 0.2 mg/dL (0.2-1.2); Calc. Creatinine Clearance 0 mL/min (70-130); Carbon Dioxide 24 mmol/L (22-29); Chloride 106 mmol/L (98-107); Estimated GFR 57; Globulin 2.9 g/dL (2.4-3.5); Glucose 171 mg/dL (70-105); Protein, Total 7.3 g/dL (6.0-8.3); Sodium 141 mmol/L (136-145)
[2023-01-25] MEDS ORDERED: Ondansetron PF 4 MG/2 ML Vial IVP PRN (12:38)
[2023-01-25] MEDS ORDERED: Acetaminophen 325 MG TAB PO PRN (12:38)
[2023-01-25] MEDS ORDERED: Ondansetron ODT 4 MG TAB PO PRN (12:38)
[2023-01-25] MEDS ORDERED: Nitroglycerin 0.4 MG TAB (25 Tab Bottle) SL PRN (12:38)
[2023-01-25] MEDS ORDERED: Acetaminophen 650 MG Suppository PR PRN (12:38)
[2023-01-25] MEDS ORDERED: rOPINIRole HCl 2 MG TAB PO SCH ×2 (13:00→14:45)
[2023-01-25] MEDS ORDERED: Gabapentin 300 MG CAP PO SCH (13:00)
[2023-01-25 13:30] LABS: Troponin I 0.018 ng/mL (< 0.028)
[2023-01-25] MEDS ORDERED: Acetaminophen 325 MG TAB ONE (15:36)
[2023-01-25 17:16] LABS: Troponin I 0.012 ng/mL (< 0.028)
[2023-01-26] MEDS ORDERED: Aspirin Chewable 81 MG TAB PO SCH (09:00)
[2023-01-26] MEDS ORDERED: Clopidogrel Bisulfate 75 MG TAB PO SCH (09:00)
== END 2023-01-25 16:53 | disposition left against medical advice (07) ==
LOC: ERS 09:08 → ERHOLD 11:27
PROVIDERS: ADMIT Internal Medicine; ATTEND Internal Medicine
DX: R07.9 Chest pain, unspecified (principal); I10 Essential (primary) hypertension; E11.40 Type 2 diabetes mellitus with diabetic neuropathy, unspecified; I25.10 Atherosclerotic heart disease of native coronary artery without angina pectoris; E78.5 Hyperlipidemia, unspecified; Z88.6 Allergy status to analgesic agent; Z79.82 Long term (current) use of aspirin; Z79.84 Long term (current) use of oral hypoglycemic drugs; Z79.899 Other long term (current) drug therapy; Z95.5 Presence of coronary angioplasty implant and graft; Z88.0 Allergy status to penicillin; Z88.2 Allergy status to sulfonamides
CPT/HCPCS: 71045; 80053; 83880; 84484 ×2; 85025; 93005; 99285; G0378; 36415

== ENCOUNTER 2023-02-23 09:46 | Emergency (ER) | payer OTHER, MEDICAID ==
[2023-02-23] MEDS ORDERED: traMADol HCl 50 MG TAB ONE ×2 (10:24→10:28)
== END 2023-02-23 11:09 | disposition home or self-care (01) ==
LOC: ERS 09:46
DX: M70.72 Other bursitis of hip, left hip (principal); E11.9 Type 2 diabetes mellitus without complications; E03.9 Hypothyroidism, unspecified; E78.5 Hyperlipidemia, unspecified; I10 Essential (primary) hypertension; F17.210 Nicotine dependence, cigarettes, uncomplicated; Z79.84 Long term (current) use of oral hypoglycemic drugs; Z79.899 Other long term (current) drug therapy
CPT/HCPCS: 99283

== ENCOUNTER 2023-07-25 10:36 | Emergency (ER) | payer OTHER, MEDICAID ==
[2023-07-25 11:39] LABS: SARS-CoV-2 NAA Rapid Test Not Detected (NotDetected)
== END 2023-07-25 12:22 | disposition home or self-care (01) ==
LOC: ERS 10:36
DX: B34.9 Viral infection, unspecified (principal); E11.9 Type 2 diabetes mellitus without complications; I10 Essential (primary) hypertension; F17.210 Nicotine dependence, cigarettes, uncomplicated
CPT/HCPCS: 0240U; 87081; 87430; 99283

== ENCOUNTER 2023-08-13 05:11 | Emergency (ER) | payer OTHER, MEDICAID ==
[2023-08-13] MEDS ORDERED: HYDROcodone/Acetaminophen 5/325 mg Tablet ONE (06:15)
[2023-08-13] MEDS ORDERED: Ketorolac Tromethamine 30 MG (1 mL) VIAL ONE (06:15)
== END 2023-08-13 07:15 | disposition home or self-care (01) ==
LOC: ERS 05:11
DX: E11.40 Type 2 diabetes mellitus with diabetic neuropathy, unspecified (principal); J44.9 Chronic obstructive pulmonary disease, unspecified; I11.0 Hypertensive heart disease with heart failure; E11.9 Type 2 diabetes mellitus without complications; F17.210 Nicotine dependence, cigarettes, uncomplicated
CPT/HCPCS: 96372; 99283; J1885

== ENCOUNTER 2023-09-01 11:38 | Emergency (ER) | payer OTHER, MEDICAID | END 2023-09-01 13:51 | disposition left against medical advice (07) | LOC: ERS 11:38 | DX: Z53.21 Procedure and treatment not carried out due to patient leaving prior to being seen by health care provider (principal) ==

== ENCOUNTER 2023-11-02 00:35 | Emergency (ER) | payer OTHER, MEDICAID ==
[2023-11-02] MEDS ORDERED: Morphine 4 MG/ML VIAL ONE (04:23)
[2023-11-02] MEDS ORDERED: Iopamidol-370 76% 500 ML MDV (1 ML CHARGE) ONE (08:54)
[2023-11-02 11:10] LABS: #Basophils 0.03 10x3/uL (0.0-0.2); %Basophils 0.3 % (0.0-1.0); %Eosinophils 1.1 % (0.0-10.0); %Lymphocytes 23.8 % (21.0-51.0); %Monocytes 6.8 % (0.0-10.0); %Neutrophils 66.6 % (42.0-75.0); Hemoglobin 8.2 g/dL (12.0-16.0); Mean Corpuscular HGB CONC 30.4 g/dL (32.0-36.0); Mean Corpuscular Hemoglobin 24.1 pg (27.0-31.0); Mean Corpuscular Volume 79.4 fL (78.0-98.0); Mean Platelet Volume 9.2 fL (7.4-10.4); Platelet Count 352 10x3/uL (130-400); RBC Distribution Width 21.1 % (11.5-14.5)
[2023-11-02 11:12] LABS: PTT 28.6 sec (22.9-36.1); Prothrombin Time 13.6 sec (12.0-14.7)
[2023-11-02 12:03] LABS: ALT (SGPT) 20 U/L (8-55); AST (SGOT) 15 U/L (5-34); Albumin 3.6 g/dL (3.5-5.0); Alkaline Phosphatase 122 U/L (40-110); Anion Gap 18 mmol/L (10-20)
[2023-11-02 12:04] LABS: Bilirubin, Total 0.9 mg/dL (0.2-1.2); Calc. Creatinine Clearance 0 mL/min (70-130); Calcium 9.6 mg/dL (7.6-10.4); Carbon Dioxide 25 mmol/L (22-29); Chloride 103 mmol/L (98-107); Estimated GFR 72; Glucose 113 mg/dL (70-105)
[2023-11-02 12:05] LABS: BUN (Urea Nitrogen) 28 mg/dL (9.8-20.1); Globulin 3.5 g/dL (2.4-3.5); Potassium 3.6 mmol/L (3.5-5.1); Protein, Total 7.1 g/dL (6.0-8.3); Sodium 142 mmol/L (136-145)
== END 2023-11-02 06:48 | disposition home or self-care (01) ==
LOC: ERS 00:35
DX: I97.630 Postprocedural hematoma of a circulatory system organ or structure following a cardiac catheterization (principal); D62 Acute posthemorrhagic anemia; I73.9 Peripheral vascular disease, unspecified; I10 Essential (primary) hypertension; F17.210 Nicotine dependence, cigarettes, uncomplicated; E11.40 Type 2 diabetes mellitus with diabetic neuropathy, unspecified; J44.89 Other specified chronic obstructive pulmonary disease; Z95.5 Presence of coronary angioplasty implant and graft; E05.90 Thyrotoxicosis, unspecified without thyrotoxic crisis or storm; E78.5 Hyperlipidemia, unspecified; Z79.84 Long term (current) use of oral hypoglycemic drugs; Z79.899 Other long term (current) drug therapy
CPT/HCPCS: 75635; 80053; 85025; 85610; 85730; 86850; 86900; 86901; 93005; 96374; J2270; Q9967